=== PATIENT | male | born 1955 | race Caucasian/White ===

== ENCOUNTER 2020-10-27 09:31 | Emergency (ER) | payer BC ==
[~2020-10-27] VITALS: Ht 177.8 cm; Wt 86.2 kg
[2020-10-27 10:04] VITALS: BP 130/85
--- NOTE | 2020-10-27 10:07 | NUR ---
TO LOBBY A/W BED AMBULATORY
[2020-10-27 12:20] VITALS: BP 130/85
--- NOTE | 2020-10-27 12:37 | NUR ---
D/C INSTRUCTIONS GIVEN BY MD. ALL RX AND INSTRUCTIONS GIVEN BY PROVIDER.
[2020-10-27 17:12] LABS: APPEARANCE,URINE CLOUDY (CLEAR); BILIRUBIN,URINE NEGATIVE (NEGATIVE); BLOOD, URINE 3+ (NEGATIVE); COLOR,URINE RED (YELLOW); LEUKOCYTE ESTERASE ,URINE 2+ (NEGATIVE); NITRITE, URINE POSITIVE (NEGATIVE); PH,URINE 7.5 (5.0-9.0); UGLUCOSE NEGATIVE (NEGATIVE)
[2020-10-27 17:21] LABS: RBC,URINE TOO NUMEROUS TO COUN /HPF (0-5)
== END 2020-10-27 12:37 | disposition home or self-care (01) ==
LOC: MED 09:31
DX: R31.9 Hematuria, unspecified (principal); F17.200 Nicotine dependence, unspecified, uncomplicated
CPT/HCPCS: 81001; 87086; 99283